=== PATIENT | male | born 1980 | race Caucasian/White ===

== ENCOUNTER 2024-01-13 17:30 | Inpatient (IN) | payer OTHER ==
[2024-01-13] MEDS ORDERED: VANCOMYCIN 1 GRAM (PRE-DOCKED) 1,000 MG/250 ML BAG IVPB ONE (19:18)
[2024-01-13] MEDS ORDERED: PIPERACILLIN/TAZOB 4.5 GM 4.5 GM/100 ML BAG IVPB ONE (19:18)
[2024-01-13 19:23] LABS: BASO % 0.2 % (0-2.0); EOS % 1.6 % (0-4.5); HEMATOCRIT 39.8 % (35.4-49); HEMOGLOBIN 12.8 GM/dL (11.7-16.9); LYMPH % 13.3 % (8-40); MCH 26.4 pg (25.7-33.7); MEAN CELL VOLUME 82.4 fl (80-96); MEAN PLT VOLUME 8.8 fl (7.5-11.1); NEUT % 74.9 % (42.8-82.8); PLATELET COUNT 250 10^3/uL (134-434); RBC 4.83 M/mm3 (4.00-5.60); RDW 13.4 % (11.9-15.9); WHITE BLOOD COUNT 8.9 K/mm3 (4.0-10.0)
[2024-01-13] MEDS: PIPERACILLIN/TAZOB 4.5 GM 4.5 GM in DEXTROSE 5%-WATER 100 ML IVPB ONE (19:27)
[2024-01-13 19:30] LABS: INR 1.1 (0.83-1.09); PROTHROMBIN TIME (PATIENT) 12.7 SEC (9.7-13.0)
[2024-01-13] MEDS: VANCOMYCIN 1,000 MG in DEXTROSE 5%-WATER - 250 ML IVPB ONE (19:51)
[2024-01-13 20:04] LABS: POTASSIUM 4.1 mmol/L (3.5-5.1)
[2024-01-13 20:06] LABS: CALCIUM 8.5 mg/dL (8.5-10.1)
[2024-01-13 20:07] LABS: ALBUMIN 2.8 g/dl (3.4-5.0); BLOOD UREA NITROGEN 9.5 mg/dL (7-18)
[2024-01-13 20:11] LABS: CREATININE 0.9 mg/dL (0.55-1.3)
[2024-01-13 20:12] LABS: BILIRUBIN,TOTAL 0.8 mg/dL (0.2-1); TOT PROT 6.8 g/dl (6.4-8.2)
[2024-01-13] MEDS ORDERED: PIPERACILLIN/TAZOB 3.375 GM 3.375 GM in DEXTROSE 5%-WATER - 50 ML IVPB SCH (21:30)
[2024-01-13] MEDS ORDERED: ATORVASTATIN CA 10 MG TABLET (FP) ONE (22:51)
[2024-01-13] MEDS ORDERED: INSULIN (NOVOLOG) ASPART 100 UNITS/ML 10ML VIAL ONE (22:52)
[2024-01-13] MEDS ORDERED: INSULIN (LEVEMIR) 100 UNITS/ML UNITS SQ ONE (22:52)
[2024-01-13] MEDS: ATORVASTATIN CA 10 MG TABLET (FP) PO SCH (22:58)
[2024-01-13] MEDS: INSULIN (LEVEMIR) 100 UNITS/ML UNITS SQ SCH (22:58)
[2024-01-13] MEDS: INSULIN ASPART SLIDING SCALE (NOVOLOG) 1 VIAL SQ SCH (22:58)
[2024-01-13] MEDS: VANCOMYCIN/WATER 1250 MG 1,250 MG/250 ML BAG IVPB SCH (22:59)
[2024-01-13 23:15] LABS: ERYTHROCYTE SEDIMENTATION RATE 72 mm/hr (0-10)
[2024-01-14] MEDS ORDERED: PIPERACILLIN/TAZOB 3.375 GM 3.375 GM/50 ML BAG IVPB ONE (01:06)
[2024-01-14] MEDS: PIPERACILLIN/TAZOB 3.375 GM 3.375 GM in DEXTROSE 5%-WATER - 50 ML IVPB SCH ×2 (01:11→17:19)
[2024-01-14 01:48] VITALS: BMI 22.9
[2024-01-14] MEDS: INSULIN (LEVEMIR) 100 UNITS/ML UNITS SQ SCH ×2 (08:27→21:29)
[2024-01-14] MEDS: LOSARTAN POTASSIUM 25 MG TABLET PO SCH (09:15)
[2024-01-14] MEDS: ENOXAPARIN NA (PORCINE) 40 MG/0.4 ML DISP.SYRIN SQ SCH (09:15)
[2024-01-14 10:00] LABS: BASO % 0.3 % (0-2.0); EOS % 1.8 % (0-4.5); HEMOGLOBIN 13.3 GM/dL (11.7-16.9); LYMPH % 17.9 % (8-40); MCH 27.3 pg (25.7-33.7); MCHC 33.4 g/dl (32.0-35.9); MEAN CELL VOLUME 81.9 fl (80-96); MEAN PLT VOLUME 8.4 fl (7.5-11.1); MONO % 9.6 % (3.8-10.2); NEUT % 70.4 % (42.8-82.8); PLATELET COUNT 255 10^3/uL (134-434); RBC 4.88 M/mm3 (4.00-5.60); RDW 13.5 % (11.9-15.9); WHITE BLOOD COUNT 6.3 K/mm3 (4.0-10.0)
[2024-01-14] MEDS ORDERED: INSULIN (LEVEMIR) 100 UNITS/ML UNITS SQ SCH (10:00)
[2024-01-14 10:15] LABS: POTASSIUM 3.6 mmol/L (3.5-5.1)
[2024-01-14 10:21] LABS: ALBUMIN 2.8 g/dl (3.4-5.0); BLOOD UREA NITROGEN 11.6 mg/dL (7-18); CALCIUM 8.9 mg/dL (8.5-10.1)
[2024-01-14 10:25] LABS: CREATININE 0.7 mg/dL (0.55-1.3)
[2024-01-14 10:26] LABS: BILIRUBIN,TOTAL 1.2 mg/dL (0.2-1); TOT PROT 6.9 g/dl (6.4-8.2)
[2024-01-14] MEDS: INSULIN (NOVOLOG) ASPART 100 UNITS/ML 10ML VIAL SQ SCH ×2 (11:33→16:40)
[2024-01-14] MEDS ORDERED: VANCOMYCIN/WATER 1250 MG 1,250 MG/250 ML BAG IVPB SCH (19:00)
[2024-01-15 08:14] LABS: POTASSIUM 4.2 mmol/L (3.5-5.1)
[2024-01-15 08:22] LABS: CALCIUM 9.4 mg/dL (8.5-10.1)
[2024-01-15 08:23] LABS: ALBUMIN 2.5 g/dl (3.4-5.0); BLOOD UREA NITROGEN 12.2 mg/dL (7-18)
[2024-01-15 08:25] LABS: CREATININE 0.7 mg/dL (0.55-1.3)
[2024-01-15 08:27] LABS: BILIRUBIN,TOTAL 0.6 mg/dL (0.2-1); TOT PROT 6.7 g/dl (6.4-8.2)
[2024-01-15] MEDS: INSULIN (NOVOLOG) ASPART 100 UNITS/ML 10ML VIAL SQ SCH (11:32)
[2024-01-15] MEDS: INSULIN (LEVEMIR) 100 UNITS/ML UNITS SQ SCH (21:15)
[2024-01-16] MEDS: INSULIN (LEVEMIR) 100 UNITS/ML UNITS SQ SCH (06:56)
[2024-01-16] MEDS: INSULIN ASPART SLIDING SCALE (NOVOLOG) 1 VIAL SQ SCH (07:02)
[2024-01-16] MEDS: ACETAMINOPHEN 325 MG TABLET (FP) PO ONE (22:26)
[2024-01-17 10:39] LABS: POTASSIUM 4.7 mmol/L (3.5-5.1)
[2024-01-17 10:41] LABS: CALCIUM 9.7 mg/dL (8.5-10.1)
[2024-01-17 10:46] LABS: BILIRUBIN,TOTAL 0.9 mg/dL (0.2-1); TOT PROT 8.6 g/dl (6.4-8.2)
[2024-01-17 10:51] LABS: ALBUMIN 3.5 g/dl (3.4-5.0); BLOOD UREA NITROGEN 42.6 mg/dL (7-18)
[2024-01-17 22:06] VITALS: RESP 18
[2024-01-18] MEDS ORDERED: LIDOCAINE HCL 1%, 10 MG/ML (20ML VIAL) ONE (07:10)
[2024-01-18] MEDS ORDERED: GENTAMICIN SO4 80 MG/2 ML VIAL ONE (07:10)
[2024-01-18] MEDS ORDERED: BUPIVACAINE HCL/PF 0.5% (5MG/ML) 10 ML VIAL ONE ×2 (07:10→07:12)
[2024-01-18] MEDS ORDERED: ACETAMINOPHEN 325 MG TABLET (FP) PO PRN ×2 (07:18→10:38)
[2024-01-18] MEDS ORDERED: ONDANSETRON 4 MG/2 ML VIAL IVPUSH PRN ×2 (07:18→10:38)
[2024-01-18] MEDS ORDERED: FENTANYL CITRATE/PF 50 MCG/ML VIAL IVPUSH PRN ×2 (07:18→10:38)
[2024-01-18] MEDS ORDERED: FENTANYL CITRATE/PF 50 MCG/ML VIAL ONE (07:23)
[2024-01-18] MEDS ORDERED: MIDAZOLAM HCL 2 MG/2 ML SINGLE DOSE VIAL ONE (07:23)
[2024-01-18] MEDS ORDERED: PROPOFOL 20 ML ONE (07:23)
[2024-01-18] MEDS: LIDOCAINE HCL 1%, 10 MG/ML (20ML VIAL) INF ONE (07:42)
[2024-01-18] MEDS ORDERED: KETOROLAC TROMETHAMINE 30 MG/1 ML VIAL ONE (07:42)
[2024-01-18] MEDS ORDERED: ONDANSETRON 4 MG/2 ML VIAL ONE (07:42)
[2024-01-18] MEDS: BUPIVACAINE HCL/PF 0.5% (5MG/ML) 10 ML VIAL IJ ONE (07:42)
[2024-01-18 08:27] LABS: POTASSIUM 5.2 mmol/L (3.5-5.1)
[2024-01-18 08:35] LABS: CALCIUM 9.3 mg/dL (8.5-10.1)
[2024-01-18 08:36] LABS: ALBUMIN 3.1 g/dl (3.4-5.0); BLOOD UREA NITROGEN 42.8 mg/dL (7-18)
[2024-01-18 08:39] LABS: CREATININE 1.2 mg/dL (0.55-1.3)
[2024-01-18 08:40] LABS: BILIRUBIN,TOTAL 0.8 mg/dL (0.2-1); TOT PROT 7.7 g/dl (6.4-8.2)
[2024-01-18] MEDS: SODIUM ZIRCONIUM CYCLOSILICATE (LOKELMA) 5 GM PACKET PO ONE (10:00)
[2024-01-18] MEDS: LACTATED RINGERS SOLUTION 1,000 ML IV SCH ×2 (10:00→18:14)
[2024-01-18] MEDS: INSULIN (NOVOLOG) ASPART 100 UNITS/ML 10ML VIAL SQ SCH (11:20)
[2024-01-18] MEDS: INSULIN ASPART SLIDING SCALE (NOVOLOG) 1 VIAL SQ SCH (11:22)
[2024-01-18] MEDS: CEFTRIAXONE 2 GM in DEXTROSE 5%-WATER 100 ML IVPB SCH (16:20)
[2024-01-18] MEDS: INSULIN (LEVEMIR) 100 UNITS/ML UNITS SQ SCH (21:44)
[2024-01-18] MEDS: ATORVASTATIN CA 10 MG TABLET (FP) PO SCH (21:44)
[2024-01-19 09:52] LABS: BASO % 0.4 % (0-2.0); HEMATOCRIT 44.5 % (35.4-49); HEMOGLOBIN 14.4 GM/dL (11.7-16.9); LYMPH % 21.2 % (8-40); MCH 26.5 pg (25.7-33.7); MCHC 32.4 g/dl (32.0-35.9); MEAN CELL VOLUME 81.9 fl (80-96); MEAN PLT VOLUME 7.7 fl (7.5-11.1); MONO % 13.3 % (3.8-10.2); NEUT % 63.1 % (42.8-82.8); PLATELET COUNT 324 10^3/uL (134-434); RBC 5.44 M/mm3 (4.00-5.60); RDW 13.1 % (11.9-15.9); WHITE BLOOD COUNT 6.8 K/mm3 (4.0-10.0)
[2024-01-19 10:11] LABS: POTASSIUM 4.7 mmol/L (3.5-5.1)
[2024-01-19 10:24] LABS: BLOOD UREA NITROGEN 23.6 mg/dL (7-18)
[2024-01-19 10:25] LABS: ALBUMIN 2.8 g/dl (3.4-5.0)
[2024-01-19] MEDS: LOSARTAN POTASSIUM 25 MG TABLET PO SCH (10:25)
[2024-01-19 10:26] LABS: CREATININE 0.8 mg/dL (0.55-1.3)
[2024-01-19 10:27] LABS: ERYTHROCYTE SEDIMENTATION RATE 56 mm/hr (0-10)
[2024-01-19 10:28] LABS: BILIRUBIN,TOTAL 0.7 mg/dL (0.2-1); TOT PROT 7.1 g/dl (6.4-8.2)
[2024-01-19] MEDS: ENOXAPARIN NA (PORCINE) 40 MG/0.4 ML DISP.SYRIN SQ SCH (10:28)
[2024-01-20 09:45] LABS: POTASSIUM 4.8 mmol/L (3.5-5.1)
[2024-01-20 10:00] LABS: BLOOD UREA NITROGEN 11.4 mg/dL (7-18); CALCIUM 8.8 mg/dL (8.5-10.1)
[2024-01-20 10:01] LABS: ALBUMIN 2.7 g/dl (3.4-5.0)
[2024-01-20 10:02] LABS: CREATININE 0.7 mg/dL (0.55-1.3)
[2024-01-20 10:03] LABS: BILIRUBIN,TOTAL 0.4 mg/dL (0.2-1)
[2024-01-20 10:09] LABS: TOT PROT 6.8 g/dl (6.4-8.2)
[2024-01-21 08:31] LABS: HEMATOCRIT 40.5 % (35.4-49); HEMOGLOBIN 13.5 GM/dL (11.7-16.9); MCH 26.9 pg (25.7-33.7); MCHC 33.4 g/dl (32.0-35.9); MEAN CELL VOLUME 80.6 fl (80-96); MEAN PLT VOLUME 8.1 fl (7.5-11.1); PLATELET COUNT 248 10^3/uL (134-434); RBC 5.03 M/mm3 (4.00-5.60); RDW 13.5 % (11.9-15.9); WHITE BLOOD COUNT 6.2 K/mm3 (4.0-10.0)
[2024-01-21 08:40] LABS: POTASSIUM 4.2 mmol/L (3.5-5.1)
[2024-01-21 08:47] LABS: ALBUMIN 2.8 g/dl (3.4-5.0); BLOOD UREA NITROGEN 9.7 mg/dL (7-18)
[2024-01-21 08:50] LABS: CREATININE 0.7 mg/dL (0.55-1.3)
[2024-01-21 08:51] LABS: BILIRUBIN,TOTAL 0.4 mg/dL (0.2-1); TOT PROT 6.5 g/dl (6.4-8.2)
[2024-01-21] MEDS: COLLAGENASE CLOSTRIDIUM HIST. 30 GRAMS TUBE TP SCH (14:20)
[2024-01-23] MEDS ORDERED: INSULIN (LEVEMIR) 100 UNITS/ML UNITS SQ ONE (07:39)
[2024-01-23 08:01] VITALS: TEMP 97.8
[2024-01-23 09:06] LABS: POTASSIUM 4.4 mmol/L (3.5-5.1)
[2024-01-23 09:11] LABS: CALCIUM 9.1 mg/dL (8.5-10.1)
[2024-01-23 09:15] LABS: BILIRUBIN,TOTAL 0.5 mg/dL (0.2-1)
[2024-01-23 09:17] LABS: CREATININE 0.8 mg/dL (0.55-1.3)
[2024-01-23 09:19] LABS: TOT PROT 6.9 g/dl (6.4-8.2)
[2024-01-23 14:23] VITALS: BP 104/65; PULSE 86
== END 2024-01-23 17:18 | disposition home or self-care (01) | DRG 344 ==
LOC: JERFT 17:30 → JERBED 20:56 → J6S 01-14 01:18
PROVIDERS: ADMIT Internal Medicine; ATTEND Internal Medicine
PROC: 0QBR3ZX Excision of Left Toe Phalanx, Percutaneous Approach, Diagnostic (ICD-10-PCS; principal; 2024-01-18 07:30)
DX: E11.621 Type 2 diabetes mellitus with foot ulcer (principal); E11.69 Type 2 diabetes mellitus with other specified complication; M86.172 Other acute osteomyelitis, left ankle and foot; E11.52 Type 2 diabetes mellitus with diabetic peripheral angiopathy with gangrene; E11.42 Type 2 diabetes mellitus with diabetic polyneuropathy; L03.116 Cellulitis of left lower limb; E87.5 Hyperkalemia; E11.65 Type 2 diabetes mellitus with hyperglycemia; I10 Essential (primary) hypertension; E78.5 Hyperlipidemia, unspecified; E11.628 Type 2 diabetes mellitus with other skin complications; L08.9 Local infection of the skin and subcutaneous tissue, unspecified; I77.1 Stricture of artery; L03.032 Cellulitis of left toe; L97.509 Non-pressure chronic ulcer of other part of unspecified foot with unspecified severity
CPT/HCPCS: 36415; 73630-TC-LT; 73718-TC-LT; 80053; 82962; 83036; 85025; 85027; 85610; 85651; 86140; 87040; 87070; 87075; 87081; 87205; 93005; 93010; 93925-TC; 99285-25

== ENCOUNTER 2024-02-08 11:07 | Inpatient (IN) | payer OTHER ==
[2024-02-08 12:37] LABS: EOS % 2.9 % (0-4.5); HEMOGLOBIN 14.4 GM/dL (11.7-16.9); LYMPH % 38.6 % (8-40); MCH 26.6 pg (25.7-33.7); MCHC 32.7 g/dl (32.0-35.9); MEAN CELL VOLUME 81.3 fl (80-96); MEAN PLT VOLUME 9.1 fl (7.5-11.1); MONO % 8.5 % (3.8-10.2); PLATELET COUNT 165 10^3/uL (134-434); RBC 5.41 M/mm3 (4.00-5.60); RDW 14.1 % (11.9-15.9); WHITE BLOOD COUNT 4.9 K/mm3 (4.0-10.0)
[2024-02-08 12:43] LABS: INR 1.06 (0.83-1.09); PROTHROMBIN TIME (PATIENT) 12.3 SEC (9.7-13.0)
[2024-02-08 13:01] LABS: POTASSIUM 4.6 mmol/L (3.5-5.1)
[2024-02-08 13:03] LABS: CALCIUM 9.4 mg/dL (8.5-10.1)
[2024-02-08 13:04] LABS: ALBUMIN 3.5 g/dl (3.4-5.0); BLOOD UREA NITROGEN 17.9 mg/dL (7-18)
[2024-02-08 13:07] LABS: CREATININE 0.8 mg/dL (0.55-1.3)
[2024-02-08 13:08] LABS: TOT PROT 7.1 g/dl (6.4-8.2)
[2024-02-08] MEDS ORDERED: VANCOMYCIN/WATER 1250 MG 1,250 MG/250 ML BAG IVPB ONE ×2 (15:02→22:30)
[2024-02-08] MEDS ORDERED: CEFEPIME 2 GM/100 ML BAG IVPB ONE ×2 (15:03→22:30)
[2024-02-08] MEDS: CEFEPIME 2 GM in DEXTROSE 5%-WATER 100 ML IVPB SCH (15:03)
[2024-02-08] MEDS: VANCOMYCIN/WATER 1250 MG 1,250 MG/250 ML BAG IVPB SCH (15:19)
[2024-02-09] MEDS: INSULIN ASPART SLIDING SCALE (NOVOLOG) 1 VIAL SQ SCH (00:15)
[2024-02-09] MEDS ORDERED: VANCOMYCIN/WATER 1250 MG 1,250 MG/250 ML BAG IVPB ONE (04:29)
[2024-02-09 06:15] LABS: HEMOGLOBIN 14.2 GM/dL (11.7-16.9); MCHC 31.6 g/dl (32.0-35.9); MEAN PLT VOLUME 9.2 fl (7.5-11.1); PLATELET COUNT 163 10^3/uL (134-434); RBC 5.49 M/mm3 (4.00-5.60); RDW 13.9 % (11.9-15.9); WHITE BLOOD COUNT 5.2 K/mm3 (4.0-10.0)
[2024-02-09 06:38] LABS: POTASSIUM 4.3 mmol/L (3.5-5.1)
[2024-02-09 06:42] LABS: CALCIUM 9.4 mg/dL (8.5-10.1)
[2024-02-09 06:43] LABS: ALBUMIN 3.4 g/dl (3.4-5.0); BLOOD UREA NITROGEN 13.4 mg/dL (7-18); MAGNESIUM 1.8 mg/dL (1.8-2.4)
[2024-02-09 06:46] LABS: CREATININE 0.7 mg/dL (0.55-1.3)
[2024-02-09 06:47] LABS: BILIRUBIN,TOTAL 1.4 mg/dL (0.2-1); TOT PROT 6.8 g/dl (6.4-8.2)
[2024-02-09] MEDS ORDERED: ENOXAPARIN NA (PORCINE) 40 MG/0.4 ML DISP.SYRIN SQ ONE (09:19)
[2024-02-09] MEDS: ENOXAPARIN NA (PORCINE) 40 MG/0.4 ML DISP.SYRIN SQ SCH (09:20)
[2024-02-09] MEDS ORDERED: CEFEPIME 2 GM/100 ML BAG IVPB ONE (09:20)
[2024-02-09 12:12] VITALS: BMI 22.9
[2024-02-09 14:18] LABS: ERYTHROCYTE SEDIMENTATION RATE 2 mm/hr (0-10)
[2024-02-09] MEDS ORDERED: CEFTRIAXONE 2 GM-D5W BAG 2 GM/50 ML BAG IVPB SCH (17:00)
[2024-02-09] MEDS: CEFTRIAXONE 2 GM in DEXTROSE 5%-WATER 100 ML IVPB SCH (18:15)
[2024-02-09] MEDS: DOXYCYCLINE HYCLATE 100 MG CAPSULE PO SCH (18:15)
[2024-02-10] MEDS: VANCOMYCIN/WATER 1250 MG 1,250 MG/250 ML BAG IVPB SCH (07:42)
[2024-02-10] MEDS: CEFEPIME HCL 2 GM VIAL (RESTRICTED TO ID) IVPB SCH (07:42)
[2024-02-10 08:12] LABS: BASO % 0.5 % (0-2.0); EOS % 4.8 % (0-4.5); HEMATOCRIT 45.6 % (35.4-49); HEMOGLOBIN 14.7 GM/dL (11.7-16.9); LYMPH % 36.7 % (8-40); MCH 26.2 pg (25.7-33.7); MCHC 32.1 g/dl (32.0-35.9); MEAN CELL VOLUME 81.7 fl (80-96); MEAN PLT VOLUME 9.1 fl (7.5-11.1); MONO % 9.7 % (3.8-10.2); NEUT % 48.3 % (42.8-82.8); PLATELET COUNT 175 10^3/uL (134-434); RBC 5.58 M/mm3 (4.00-5.60); RDW 14.1 % (11.9-15.9); WHITE BLOOD COUNT 5.6 K/mm3 (4.0-10.0)
[2024-02-10 08:17] LABS: INR 1.13 (0.83-1.09); PROTHROMBIN TIME (PATIENT) 13.1 SEC (9.7-13.0)
[2024-02-10 08:18] LABS: ACTIVATED PTT 33.7 SECONDS (25.2-36.5)
[2024-02-10 08:53] LABS: POTASSIUM 4.6 mmol/L (3.5-5.1)
[2024-02-10 08:56] LABS: ALBUMIN 3.2 g/dl (3.4-5.0); CALCIUM 9.2 mg/dL (8.5-10.1); MAGNESIUM 1.9 mg/dL (1.8-2.4)
[2024-02-10 08:59] LABS: CREATININE 0.8 mg/dL (0.55-1.3); PHOSPHOROUS 3.7 mg/dL (2.5-4.9)
[2024-02-10 09:01] LABS: BILIRUBIN,TOTAL 1.1 mg/dL (0.2-1); TOT PROT 6.8 g/dl (6.4-8.2)
[2024-02-10] MEDS: INSULIN (LEVEMIR) 100 UNITS/ML UNITS SQ SCH (21:33)
[2024-02-11 09:58] LABS: POTASSIUM 4.8 mmol/L (3.5-5.1)
[2024-02-11 10:09] LABS: ALBUMIN 3.6 g/dl (3.4-5.0); BLOOD UREA NITROGEN 19.4 mg/dL (7-18)
[2024-02-11 10:12] LABS: CREATININE 0.9 mg/dL (0.55-1.3)
[2024-02-11 10:13] LABS: BILIRUBIN,TOTAL 1.3 mg/dL (0.2-1); TOT PROT 7.8 g/dl (6.4-8.2)
[2024-02-12 08:39] LABS: BASO % 0.4 % (0-2.0); EOS % 4.2 % (0-4.5); HEMATOCRIT 45.1 % (35.4-49); HEMOGLOBIN 14.7 GM/dL (11.7-16.9); LYMPH % 45.7 % (8-40); MCH 26.6 pg (25.7-33.7); MCHC 32.6 g/dl (32.0-35.9); MEAN CELL VOLUME 81.5 fl (80-96); MEAN PLT VOLUME 9.3 fl (7.5-11.1); MONO % 9.8 % (3.8-10.2); NEUT % 39.9 % (42.8-82.8); PLATELET COUNT 177 10^3/uL (134-434); POTASSIUM 4.2 mmol/L (3.5-5.1); RBC 5.53 M/mm3 (4.00-5.60); RDW 14.2 % (11.9-15.9); WHITE BLOOD COUNT 5.6 K/mm3 (4.0-10.0)
[2024-02-12 08:44] LABS: BLOOD UREA NITROGEN 16.6 mg/dL (7-18)
[2024-02-12 08:46] LABS: ALBUMIN 3.3 g/dl (3.4-5.0); CALCIUM 9.2 mg/dL (8.5-10.1)
[2024-02-12 08:49] LABS: CREATININE 0.8 mg/dL (0.55-1.3)
[2024-02-12 08:50] LABS: TOT PROT 6.8 g/dl (6.4-8.2)
[2024-02-12] MEDS: INSULIN (LEVEMIR) 100 UNITS/ML UNITS SQ SCH (21:29)
[2024-02-13 10:00] LABS: POTASSIUM 4.6 mmol/L (3.5-5.1)
[2024-02-13 10:12] LABS: CALCIUM 9.7 mg/dL (8.5-10.1)
[2024-02-13 10:13] LABS: BLOOD UREA NITROGEN 17.2 mg/dL (7-18)
[2024-02-13 10:16] LABS: CREATININE 0.8 mg/dL (0.55-1.3)
[2024-02-13] MEDS: INSULIN (LEVEMIR) 100 UNITS/ML UNITS SQ SCH (22:26)
[2024-02-14] MEDS ORDERED: LIDOCAINE HCL 1%, 10 MG/ML (20ML VIAL) ONE (07:21)
[2024-02-14] MEDS ORDERED: BUPIVACAINE HCL/PF 0.5% (5MG/ML) 10 ML VIAL ONE (07:21)
[2024-02-14 07:41] LABS: HEMATOCRIT 47.1 % (35.4-49); MCH 26.1 pg (25.7-33.7); MCHC 31.8 g/dl (32.0-35.9); MEAN CELL VOLUME 82.1 fl (80-96); PLATELET COUNT 172 10^3/uL (134-434); RBC 5.73 M/mm3 (4.00-5.60); RDW 14.1 % (11.9-15.9); WHITE BLOOD COUNT 5.2 K/mm3 (4.0-10.0)
[2024-02-14 07:57] LABS: POTASSIUM 4.5 mmol/L (3.5-5.1)
[2024-02-14 07:58] LABS: CALCIUM 9.7 mg/dL (8.5-10.1)
[2024-02-14 07:59] LABS: BLOOD UREA NITROGEN 17.5 mg/dL (7-18)
[2024-02-14 08:02] LABS: CREATININE 0.9 mg/dL (0.55-1.3)
[2024-02-14] MEDS ORDERED: MIDAZOLAM HCL 2 MG/2 ML SINGLE DOSE VIAL ONE ×2 (08:15→08:23)
[2024-02-14] MEDS ORDERED: PROPOFOL 20 ML ONE (08:15)
[2024-02-14] MEDS: LIDOCAINE HCL 1%, 10 MG/ML (20ML VIAL) INF ONE (08:35)
[2024-02-14] MEDS: VANCOMYCIN 1,000 MG VIAL (RESTRICTED TO ID ONLY) IVPB ONE (08:42)
[2024-02-14] MEDS: CEFTRIAXONE 2 GM in DEXTROSE 5%-WATER 100 ML IVPB ONE (12:35)
[2024-02-14] MEDS: DOXYCYCLINE HYCLATE 100 MG CAPSULE PO SCH (18:05)
[2024-02-14] MEDS: ACETAMINOPHEN 500 MG TABLET (FP) PO PRN (22:35)
[2024-02-15] MEDS: CEFTRIAXONE 2 GM in DEXTROSE 5%-WATER 100 ML IVPB SCH (10:04)
[2024-02-15] MEDS: INSULIN (NOVOLOG) ASPART 100 UNITS/ML 10ML VIAL SQ SCH (12:42)
[2024-02-15] MEDS: INSULIN (LEVEMIR) 100 UNITS/ML UNITS SQ SCH (21:55)
[2024-02-16] MEDS ORDERED: INSULIN ASPART SLIDING SCALE (NOVOLOG) 1 VIAL SQ ONE (11:28)
[2024-02-17] MEDS: ENOXAPARIN NA (PORCINE) 40 MG/0.4 ML DISP.SYRIN SQ SCH (09:39)
[2024-02-17] MEDS ORDERED: INSULIN ASPART SLIDING SCALE (NOVOLOG) 1 VIAL SQ SCH (11:00)
[2024-02-17] MEDS: INSULIN (NOVOLOG) ASPART 100 UNITS/ML 10ML VIAL SQ SCH (14:09)
[2024-02-17] MEDS: INSULIN ASPART SLIDING SCALE (NOVOLOG) 1 VIAL SQ SCH (17:40)
[2024-02-19 08:47] LABS: BASO % 0.6 % (0-2.0); HEMATOCRIT 47.5 % (35.4-49); HEMOGLOBIN 15.5 GM/dL (11.7-16.9); LYMPH % 39.4 % (8-40); MCH 26.5 pg (25.7-33.7); MCHC 32.6 g/dl (32.0-35.9); MEAN CELL VOLUME 81.4 fl (80-96); MEAN PLT VOLUME 9.2 fl (7.5-11.1); MONO % 9.6 % (3.8-10.2); NEUT % 47.4 % (42.8-82.8); PLATELET COUNT 176 10^3/uL (134-434); RBC 5.84 M/mm3 (4.00-5.60); RDW 13.6 % (11.9-15.9); WHITE BLOOD COUNT 5.7 K/mm3 (4.0-10.0)
[2024-02-19 09:05] LABS: ACTIVATED PTT 35.7 SECONDS (25.2-36.5); POTASSIUM 4.2 mmol/L (3.5-5.1)
[2024-02-19 09:06] LABS: INR 1.05 (0.83-1.09); PROTHROMBIN TIME (PATIENT) 12.2 SEC (9.7-13.0)
[2024-02-19 09:16] LABS: ALBUMIN 3.5 g/dl (3.4-5.0); CALCIUM 9.4 mg/dL (8.5-10.1)
[2024-02-19 09:17] LABS: BLOOD UREA NITROGEN 18.1 mg/dL (7-18); MAGNESIUM 1.5 mg/dL (1.8-2.4)
[2024-02-19 09:19] LABS: CREATININE 0.8 mg/dL (0.55-1.3); PHOSPHOROUS 4.6 mg/dL (2.5-4.9)
[2024-02-19 09:22] LABS: BILIRUBIN,TOTAL 1.1 mg/dL (0.2-1); TOT PROT 7.2 g/dl (6.4-8.2)
[2024-02-19 11:34] VITALS: BP 130/72; PULSE 88; RESP 16; TEMP 98.3
[2024-02-19] MEDS ORDERED: AMOX TR/POT CLAV 875MG/125MG TABLETS (FP) PO SCH (17:30)
== END 2024-02-19 11:56 | disposition home or self-care (01) | DRG 344 ==
LOC: JER 11:07 → JERBED 12:09 → J5S 02-09 10:58
PROVIDERS: ADMIT Internal Medicine
PROC: 0QBR3ZX Excision of Left Toe Phalanx, Percutaneous Approach, Diagnostic (ICD-10-PCS; principal; 2024-02-14 08:15)
DX: E10.69 Type 1 diabetes mellitus with other specified complication (principal); M86.9 Osteomyelitis, unspecified; E10.65 Type 1 diabetes mellitus with hyperglycemia; I10 Essential (primary) hypertension; L03.032 Cellulitis of left toe
CPT/HCPCS: 36415; 73630-TC-LT; 80048; 80053; 82962; 83735; 84100; 85025; 85027; 85610; 85651; 85730; 86140; 86850; 86900; 86901; 87040; 87070; 87075; 87205; 88305-TC; 93005; 93010; 99285-25; G0463-25